=== PATIENT | female | born 1990 | race Caucasian/White ===

== ENCOUNTER 2017-02-23 08:55 | Day surgery (SDC) | payer OTHER ==
[~2017-02-23] VITALS: Ht 165.1 cm; Wt 63.5 kg
[~2017-02-23 08:55] MED LIST: CONCERTA54 MG PO; CYMBALTA60 MG PO; FOLIC ACID0.4 MG PO; LAMICTAL100 MG PO; MOTRIN800 MG PO; PRILOSEC20 MG PO; RESTORIL30 MG PO; VITAMIN C1000 MG PO; XANAX0.5 MG PO
[2017-02-23 09:33] VITALS: BP 126/91
[2017-02-23] MEDS ORDERED: PERCOCET 5/31 TABLET PO (13:27)
[2017-02-23 14:47] VITALS: BP 119/77
[2017-02-23 15:45] VITALS: BP 121/79
[2017-02-28 12:25] LABS: INTERNAL CONTROL VALID? YES
== END 2017-02-23 16:10 | disposition home or self-care (01) ==
LOC: SDC 08:55
PROVIDERS: Obstetrics & Gynecology Gynecology
PROC: 0UBF4ZZ Excision of Cul-de-sac, Percutaneous Endoscopic Approach (ICD-10-PCS; principal; 2017-02-23)
DX: N80.3 Endometriosis of pelvic peritoneum (principal); N70.11 Chronic salpingitis; K66.0 Peritoneal adhesions (postprocedural) (postinfection); F31.9 Bipolar disorder, unspecified; F41.9 Anxiety disorder, unspecified; H91.92 Unspecified hearing loss, left ear
CPT/HCPCS: 84703; 88305; J0131; J1100; J1170; J1885; J2250; J2405; J2710; J3010